=== PATIENT | male | born 1980 | race Caucasian/White ===

== ENCOUNTER 2016-09-23 12:31 | Emergency (ER) | payer OTHER ==
[~2016-09-23] VITALS: Ht 162.6 cm; Wt 108.4 kg
[~2016-09-23 12:31] MED LIST: DICL75 PO; GABA300C3 PO; GLIP5 PO; HYDR-3533 PO; IBUP800T23 PO; OMEP20.62 PO; PERC5TAB12 PO; PRAZ5CAP16 PO; SUCR1TAB PO; TEMA15CA PO; TOPA200T4 PO; TRAZ50TA4 PO; WELL150T PO
[2016-09-23 12:42] VITALS: BP 121/78; PULSE 85; RESP 20; TEMP 98.2; O2SAT 95
[2016-09-23] MEDS ORDERED: NEOM0.1S4 LEFT EAR (13:02)
[2016-09-23] MEDS ORDERED: GLIP5TAB8 PO (13:04)
--- NOTE | 2016-09-23 13:07 | PD ---
HPI Chief Complaint: ENT Complaint Time Seen by Provider: 13:03 Travel History International Travel<30 days: No Contact w/Intl Traveler<30days: No Traveled to known affect area: No History of Present Illness HPI 36-year-old male that presents to the ED for evaluation of left ear pain. Per patient she's had this for about 3 days. Per patient it started after swimming. Per patient feels like there is water in his ear he cannot hear. He denies any chest pain. No cough, runny nose. No history of this in the past. Has not put anything on the ear. Has not seen anybody today. No allergies to medication. Pain per patient is 6 out of 10. 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 Cardiac Surgery: No Genitourinary Surgery: No Oral Surgery: Yes (RODS TO BOTTOM JAW RELATED TO DENTEL SURGERY) Thoracic Surgery: No Other Surgery: Yes (CARPAL TUNNEL RELEASE AND DEVIATED SEPTUM SURGERY) Social History Alcohol Use: No Tobacco Use: No Substance Use: No Allergies-Medications (Allergen,Severity, Reaction): Coded Allergies: No Known Allergies (Verified , 12/14/14) Reported Meds & Prescriptions Reported Meds & Active Scripts Active Nqnevyla-Lvtkdftcl-Ineayygcfrcxh Opth Drops 3.5-10,000-0.1 Mg-Units-% Susp 4 Drop LEFT EAR Q6HR 10 Days Percocet 5-325 mg (Oxycodone/Acetaminophen) Oxycodone 5/325 Acetaminophen Tab 1 Tab PO Q6H PRN Diclofenac Sodium Dr (Diclofenac Sod) 75 Mg Tab 75 Mg PO BID PRN Ibuprofen 800 Mg Tab 800 Mg PO TID 10 Days Lortab 5 mg/325 mg (Hydrocodone/Acetaminophen 5 mg/325 mg) 1 Tab 1 Tab PO Q6H PRN Reported Topamax (Topiramate) 200 Mg Tab 300 Mg PO DAILY Sucralfate 1 Gm Tab 1 Gm PO TIDACHS Take with water on an empty stomach. To reduce the potential of adversely affecting the absorption of other drugs, take other drugs 2 hours prior to Sucralfate. Omeprazole Magnesium 20.[address] CAP (Omeprazole Magnesium) 20.6 Mgdr Cap 2 Cap PO BID Gabapentin 300 Mg Cap 300 Mg PO BID Glucotrol (Glipizide) 5 Mg Tab 10 Mg PO BIDAC Trazodone Hcl (Trazodone HCl) 50 Mg Tab 200 Mg PO HS Temazepam 15 Mg Cap 45 Mg PO HS Wellbutrin Sr (Bupropion HCl) 150 Mg Tab 150 Mg PO Q12H Prazosin Hcl (Prazosin HCl) 5 Mg Cap 10 Mg PO HS FOR DREAMS Review of Systems Except as stated in HPI: all other systems reviewed are Neg Physical Exam Narrative GENERAL: Well-nourished, well-developed patient in no apparent distress. SKIN: Warm and dry. HEAD: Atraumatic. Normocephalic. EYES: Pupils equal and round reactive to light and accommodation. No scleral icterus. No injection or drainage. ENT: No nasal bleeding or discharge. Mucous membranes pink and moist. TMs are clear with no sign of infection or perforation. No mastoid tenderness. Left ear canal has inflammation and exudates noted. No lymphadenopathy. Nostril mucosa is red and moist with clear mucus noted. No sinus tenderness to palpation noted. Tonsils are not enlarged or swollen. No ulvua Deviation. Tongue is midline. NECK: Trachea midline. No JVD. No meningeal signs noted CARDIOVASCULAR: Regular rate and rhythm. RESPIRATORY: No accessory muscle use. Clear to auscultation. Breath sounds equal bilaterally. GASTROINTESTINAL: Abdomen soft, non-tender, nondistended. Hepatic and splenic margins not palpable. MUSCULOSKELETAL: Extremities without clubbing, cyanosis, or edema. No obvious deformities. NEUROLOGICAL: Awake and alert. No obvious cranial nerve deficits. Motor grossly within normal limits. Five out of 5 muscle strength in the arms and legs. Normal speech. PSYCHIATRIC: Appropriate mood and affect; insight and judgment normal. Data Data Last Documented VS Vital Signs Date Time Temp Pulse Resp B/P Pulse Ox O2 Delivery O2 Flow Rate FiO2 09/23/16 12:42 98.2 85 20 121/78 95 MDM Medical Decision Making Medical Screen Exam Complete: Yes Emergency Medical Condition: Yes Medical Record Reviewed: Yes Differential Diagnosis Otitis media versus otitis externa versus normal exam Narrative Course 36-year-old male that presents to the ED for evaluation of left ear infection. Patient was properly examined and was found to have signs and symptoms very consistent what appears to be otitis externa. Patient will be treated for this with Corticosporin drops. Told to follow with PCP. See ED worsening symptoms. Diagnosis Primary Impression: Otitis externa of left ear Qualified Code: H60.332 - Acute swimmer's ear of left side Patient Instructions: General Instructions Additional Instructions: Take medication as prescribed. Follow with PCP. See ED worsening symptoms. Motrin or Tylenol for pain. Med/Other Pt SpecificInfo: Prescription(s) given Scripts Ggolgioi-Rbbpywxqy-Pkivucihfhxwb Opth Drops 3.5-10,000-0.1 Mg-Units-% Susp4 Drop LEFT EAR Q6HR 10 Days Ref 0 Prov:Phylicia Cheatham MD 09/23/16 Disposition: 01 DISCHARGE HOME Condition: Stable Rodolfo Rajput Sep 23, 2016 13:07
== END 2016-09-23 13:18 | disposition home or self-care (01) ==
LOC: PHED 12:31 → PHEFT 13:18
DX: H60.332 Swimmer's ear, left ear (principal); I10 Essential (primary) hypertension; E11.9 Type 2 diabetes mellitus without complications; G47.30 Sleep apnea, unspecified; Z86.59 Personal history of other mental and behavioral disorders; Z86.79 Personal history of other diseases of the circulatory system; Z87.19 Personal history of other diseases of the digestive system; Z87.39 Personal history of other diseases of the musculoskeletal system and connective tissue; Z86.69 Personal history of other diseases of the nervous system and sense organs
CPT/HCPCS: 99283